=== PATIENT | male | born 1945 | race Caucasian/White ===

== ENCOUNTER 2016-12-23 08:55 | Day surgery (SDC) | payer MEDICARE, OTHER ==
[2016-12-23] MEDS ORDERED: Lactated Ringers 1,000 ML IV SCH (09:15)
[2016-12-23] MEDS ORDERED: Propofol 200 MG/20 ML SDV ONE (10:04)
[2016-12-23] MEDS ORDERED: fentaNYL 100 MCG/2 ML SDV ONE (10:04)
[2016-12-23] MEDS ORDERED: Midazolam 1 MG/ML 2 ML SDV ONE (10:04)
--- NOTE | 2016-12-23 15:10 | OR ---
DATE OF PROCEDURE: 12/23/2016 PREOPERATIVE DIAGNOSIS: Blood in stool. POSTOPERATIVE DIAGNOSIS: Small polyp at 35 cm from the anal verge; colitis about 70 cm from the anal verge, near the splenic flexure. PROCEDURES: Colonoscopy to the cecum with biopsy resection of a small polyp at 35 cm from the anal verge and biopsy of area of colitis about 70 cm from the anal verge. ANESTHESIA: IV anesthesia with monitored anesthesia care. INDICATION: This 71-year-old white male is referred for a colonoscopy because of blood in his stool. He is not sure when his last colonoscopic exam was done, but it was at the [facility]. I counseled him for a colonoscopy with possible biopsy and/or polypectomy including risks and alternatives, and he gave his informed consent to proceed. DESCRIPTION OF PROCEDURE: The patient was placed in the left lateral decubitus position. IV anesthesia was administered by the Anesthesia Service. Time-out was held. A rectal exam was performed, which was unremarkable. The flexible video Olympus colonoscope was introduced through his anus, up his rectum and out his colon, all the way to the cecum. En route, at 35 cm from the anal verge, we saw a small polyp, which was removed with a couple of bites of biopsy forceps. Also en route, at about 70 cm up near the splenic flexure, we encountered an area of colitis. This was a fairly short area. We obtained biopsies of this area. Once the cecum was reached, the scope was slowly withdrawn, examining the mucosa throughout. No additional mucosal abnormalities were noted, except that we did see a single diverticulum, which was not bleeding and had no inflammation associated with it. The scope was retroflexed in the rectum with the distal rectum appearing unremarkable, except for some minor hemorrhoidal tissue. The scope was straightened and removed. He tolerated the procedure well. Meliton Pradhan MD /[id number] [facility]
== END 2016-12-23 12:30 | disposition home or self-care (01) ==
LOC: JP.SDS 08:55
PROVIDERS: ATTEND Surgery
DX: D12.6 Benign neoplasm of colon, unspecified (principal); K57.30 Diverticulosis of large intestine without perforation or abscess without bleeding; Z87.891 Personal history of nicotine dependence
CPT/HCPCS: 45380; 88305; J2250; J2704; J3010; J7120

== ENCOUNTER 2021-12-16 14:44 | Emergency (ER) | payer MEDICARE, OTHER ==
[2021-12-16] MEDS ORDERED: Albuterol/Ipratropium 3.0-0.5 MG/3 ML Neb Soln NEB ONE (15:47)
[2021-12-16 15:58] LABS: ESTIMATED GFR 78 mL/min (>60); TROPONIN I HIGH SENSITIVITY 14.5 pg/mL (<=60.3)
[2021-12-16] MEDS ORDERED: Sodium Chloride 0.9% 1,000 ML IV ONE (16:25)
[2021-12-16] MEDS ORDERED: Iopamidol 755 Mg/ML 100 ML Bottle IV SCH (16:45)
[2021-12-16] MEDS ORDERED: Sodium Chloride 0.9% 100 ML IV SCH (16:45)
[2021-12-16] MEDS ORDERED: methylPREDNISolone Sodium Succinate 125 MG/2 ML SDV IVPUSH ONE (17:13)
== END 2021-12-16 18:23 | disposition home or self-care (01) ==
LOC: JP.ED 14:44
DX: J44.1 Chronic obstructive pulmonary disease with (acute) exacerbation (principal); R09.02 Hypoxemia; F17.210 Nicotine dependence, cigarettes, uncomplicated; Z79.899 Other long term (current) drug therapy
CPT/HCPCS: 36415; 71046; 71275; 80053; 84484; 85025; 85379; 94640; 94644; 96361; 96374; 99285; J2930; J3490; J7030; Q9967; J7620

== ENCOUNTER 2023-03-24 11:58 | Emergency (ER) | payer OTHER, MEDICARE ==
[2023-03-24 14:00] LABS: CORONAVIRUS COVID-19 NAA NEGATIVE (NEGATIVE); INFLUENZA A NAA NEGATIVE (NEGATIVE); INFLUENZA B NAA NEGATIVE (NEGATIVE); RESPIRATORY SYNCYTIAL VIR NAA NEGATIVE (NEGATIVE)
[2023-03-24 14:04] LABS: BASOPHILS ABSOLUTE AUTO 0.03 K/uL (0.00-0.10); BASOPHILS PERCENT AUTO 0.3 % (0.1-1.3); EOSINOPHILS PERCENT AUTO 1.1 % (0.0-5.4); HEMATOCRIT 43.2 % (38.4-49.7); HEMOGLOBIN 14.1 g/dL (12.9-16.9); IMMATURE GRAN ABSOLUTE AUTO 0.03 K/uL (0.00-0.23); IMMATURE GRAN PERCENT AUTO 0.3 % (0.0-0.7); LYMPHOCYTES ABSOLUTE AUTO 1.82 K/uL (0.8-3.3); LYMPHOCYTES PERCENT AUTO 19.6 % (11.4-47.7); MEAN CORPUSCULAR HEMOGLOBIN 30.6 pg (31.6-35.5); MEAN CORPUSCULAR HGB CONC 32.6 g/dL (31.6-35.5); MEAN CORPUSCULAR VOLUME 93.7 fL (81.4-99.0); MONOCYTES PERCENT AUTO 10.8 % (3.3-12.6); NEUTROPHILS ABSOLUTE AUTO 6.29 K/uL (1.0-7.6); NEUTROPHILS PERCENT AUTO 67.9 % (40.0-78.1); PLATELET COUNT,PLT 161 K/uL (130-375); RED BLOOD CELL COUNT 4.61 M/uL (4.14-5.76); WHITE BLOOD CELL COUNT,WBC 9.3 K/uL (3.2-11.0)
[2023-03-24 14:20] LABS: ANION GAP 10.8 mmol/L (5.0-14.0); CALCIUM 8.2 mg/dL (8.5-10.1); EST CRCL DRUG DOSING (CG) 57.84 mL/min; POTASSIUM,K 4.8 mmol/L (3.6-5.2)
== END 2023-03-24 15:06 | disposition home or self-care (01) ==
LOC: JP.ED 11:58
DX: J44.1 Chronic obstructive pulmonary disease with (acute) exacerbation (principal); I50.9 Heart failure, unspecified; Z86.16 Personal history of COVID-19; Z79.02 Long term (current) use of antithrombotics/antiplatelets; Z79.899 Other long term (current) drug therapy
CPT/HCPCS: 0241U; 36415; 71046; 80048; 83880; 84145; 85025; 99284; 99285

== ENCOUNTER 2023-11-17 06:21 | Day surgery (SDC) | payer OTHER, MEDICARE ==
[2023-11-17] MEDS ORDERED: Ondansetron 4 MG/2 ML SDV ONE (06:44)
[2023-11-17] MEDS ORDERED: Dexamethasone 4 MG/ML SDV ONE (06:44)
[2023-11-17] MEDS ORDERED: Glycopyrrolate 0.2 MG/ML 5 ML MDV ONE (06:44)
[2023-11-17] MEDS ORDERED: Neostigmine Methylsulfate 10 MG/10 ML MDV ONE (06:44)
[2023-11-17] MEDS ORDERED: Succinylcholine 200 MG/10 ML MDV ONE (06:44)
[2023-11-17] MEDS ORDERED: Rocuronium 50 MG/5 ML Vial ONE (06:44)
[2023-11-17] MEDS ORDERED: Propofol 200 MG/20 ML SDV ONE ×2 (06:44→08:44)
[2023-11-17] MEDS ORDERED: fentaNYL 250 MCG/5 ML SDV ONE (06:45)
[2023-11-17 06:48] LABS: HEMATOCRIT 45.6 % (38.4-49.7); HEMOGLOBIN 14.6 g/dL (12.9-16.9); MEAN CORPUSCULAR HEMOGLOBIN 28.7 pg (31.6-35.5); MEAN CORPUSCULAR VOLUME 89.6 fL (81.4-99.0); RED BLOOD CELL COUNT 5.09 M/uL (4.14-5.76); WHITE BLOOD CELL COUNT,WBC 8.5 K/uL (3.2-11.0)
[2023-11-17 07:08] LABS: A/G RATIO 0.7 (1.2-2.2); ALANINE AMINOTRANSFERASE,ALT 23 U/L (12-78); ALBUMIN 3.7 g/dL (3.4-5.0); ALKALINE PHOSPHATASE 106 U/L (46-116); ASPARTATE AMNIOTRANSFERASE,AST 19 U/L (15-37); BILIRUBIN TOTAL 0.4 mg/dL (0.2-1.0); BLOOD UREA NITROGEN,BUN 25 mg/dL (7-18); CALCIUM 9.2 mg/dL (8.5-10.1); CARBON DIOXIDE,CO2 33 mmol/L (21-32); CHLORIDE,CL 102 mmol/L (100-108); CREATININE 1.2 mg/dL (0.8-1.3); ESTIMATED GFR 62 mL/min (>60); GLUCOSE RANDOM 103 mg/dL (74-106); POTASSIUM,K 4.2 mmol/L (3.6-5.2); PROTEIN TOTAL,TP 8.7 g/dL (6.4-8.2); SODIUM,NA 143 mmol/L (140-148)
[2023-11-17 07:10] LABS: ANION GAP 12.2 mmol/L (5.0-14.0)
[2023-11-17] MEDS: Sodium Chloride 0.9% 1,000 ML IV SCH (07:29)
[2023-11-17] MEDS: metroNIDAZOLE/Normal Saline 500 MG in Premix Bag 1 BAG IV ONE (07:44)
[2023-11-17] MEDS ORDERED: Midazolam 1 MG/ML 2 ML SDV ONE (07:55)
[2023-11-17] MEDS: ceFAZolin 2 GM in Premix Bag 1 BAG IV ONE (08:15)
[2023-11-17] MEDS: Bupivacaine 0.5%/EPINEPHrine 1:200,000 50 ML MDV ONE (08:50)
[2023-11-17] MEDS: Albuterol/Ipratropium 3.0-0.5 MG/3 ML Neb Soln NEB SCH (10:06)
== END 2023-11-17 12:44 | disposition home or self-care (01) ==
LOC: JP.SDS 06:21
PROVIDERS: ATTEND Surgery
DX: K40.30 Unilateral inguinal hernia, with obstruction, without gangrene, not specified as recurrent (principal); I50.22 Chronic systolic (congestive) heart failure; J44.9 Chronic obstructive pulmonary disease, unspecified; Z79.82 Long term (current) use of aspirin; Z79.899 Other long term (current) drug therapy
CPT/HCPCS: 36415; 49507; 80053; 85027; 94640; C1713; C1781; J0171; J0330; J0690; J1100; J1836; J2250; J2704; J2795; J3010; J3490; J7030; 00840-QZ; J1596; J2405; J2710; J7620

== ENCOUNTER 2023-12-06 17:00 | Emergency (ER) | payer OTHER, MEDICARE ==
[2023-12-06] MEDS: Lidocaine/Epineph/Tetracaine 3 ML Syringe TOP ONE (17:31)
[2023-12-06] MEDS: Diphtheria,Pertussis(Acell),Tetanus Vaccine 0.5 ML Syringe IM ONE (18:36)
[2023-12-06] MEDS: Bacitracin Oint 1 GM U/D Packet TOP ONE (18:36)
== END 2023-12-06 18:42 | disposition home or self-care (01) ==
LOC: JP.ED 17:00
DX: S01.01XA Laceration without foreign body of scalp, initial encounter (principal); E78.00 Pure hypercholesterolemia, unspecified; J44.9 Chronic obstructive pulmonary disease, unspecified; F17.210 Nicotine dependence, cigarettes, uncomplicated; Z90.49 Acquired absence of other specified parts of digestive tract; Z86.16 Personal history of COVID-19; Z79.899 Other long term (current) drug therapy; Z23 Encounter for immunization; Z79.82 Long term (current) use of aspirin; W22.8XXA Striking against or struck by other objects, initial encounter
CPT/HCPCS: 12002; 70450; 90471; 90715; 99283; A9270